=== PATIENT | male | born 1935 | race Caucasian/White ===

== ENCOUNTER 2016-11-23 15:26 | Observation (INO) | payer MEDICARE, BC ==
[2016-11-23] VITALS (385 sets, daily range): BP systolic 185–211; BP diastolic 78–82; PULSE 31–64; TEMP 97.6; O2SAT 92–100
[~2016-11-23] VITALS: Ht 175.3 cm; Wt 68.7 kg
[2016-11-23] MEDS ORDERED: ATIVAN 0.50.5 MG/TAB PO (17:35)
[2016-11-23 18:06] LABS: HEMATOCRIT 40.3 % (42.0-52.0); HEMOGLOBIN 13.3 g/dl (13.5-18.0); MEAN CELL VOLUME 94 fl (80.0-100.0); MEAN CORPUSCULAR HEMOGLOBIN 31 pg (27.0-31.0); MEAN CORPUSCULAR HGB CONC 33 g/dl (33.0-37.0); MEAN PLATELET VOLUME 13.7 fl (7.4-10.4); PLATELET COUNT 94 K/mm3 (130-400); RED BLOOD COUNT 4.28 M/mm3 (4.20-5.60); REDCELL DISTRIBUTION WIDTH-CV 12.5 % (11.5-14.5); WHITE BLOOD COUNT 6.8 K/mm3 (4.8-10.8)
[2016-11-23 18:18] LABS: INR 1.1 (0.8-3.0); PROTHROMBIN TIME 11.7 SECONDS (9.7-12.8)
[2016-11-23 18:18] LABS: ANION GAP 7 mmol/L (7-16); BLOOD UREA NITROGEN 15 mg/dL (9-20); CALCIUM 8.9 mg/dL (8.4-10.2); CARBON DIOXIDE 26 mmol/L (22-30); CHLORIDE 105 mmol/L (98-107); GLUCOSE 90 mg/dL (74-106); PHOSPHOROUS 3.7 mg/dL (2.5-4.5); SODIUM 138 mmol/L (137-145)
[2016-11-23 18:30] LABS: TROPONIN-I < 0.012 ng/mL (0.000-0.034)
[2016-11-23 18:31] LABS: B-TYPE NATRIURETIC PEPTIDE 382 pg/mL (0-450)
[2016-11-24] VITALS (521 sets, daily range): BP systolic 115–203; BP diastolic 65–98; PULSE 47–74; TEMP 97.8–98; O2SAT 78–100
[2016-11-24 05:52] LABS: BASO # 0.1 (0.0-0.2); BASO % 1.3 % (0.0-2.0); EOS # 0.2 (0.0-0.7); EOS % 3.6 % (0-4.0); GRAN # 3.5 (1.4-6.5); GRAN % 66.1 % (42.2-75.2); HEMATOCRIT 38.8 % (42.0-52.0); HEMOGLOBIN 12.9 g/dl (13.5-18.0); LYMPH # 1.1 (1.2-3.4); LYMPH % 20.9 % (20.0-51.0); MEAN CELL VOLUME 93 fl (80.0-100.0); MEAN CORPUSCULAR HEMOGLOBIN 31 pg (27.0-31.0); MEAN CORPUSCULAR HGB CONC 33 g/dl (33.0-37.0); MEAN PLATELET VOLUME 13.5 fl (7.4-10.4); MONO # 0.4 (0.1-0.6); MONO % 7.9 % (1.7-9.3); PLATELET COUNT 88 K/mm3 (130-400); RED BLOOD COUNT 4.19 M/mm3 (4.20-5.60); REDCELL DISTRIBUTION WIDTH-CV 12.4 % (11.5-14.5); WHITE BLOOD COUNT 5.3 K/mm3 (4.8-10.8)
[2016-11-24 06:07] LABS: CALCIUM 8.8 mg/dL (8.4-10.2); CREATININE, serum 0.84 mg/dL (0.66-1.25); POTASSIUM 3.6 mmol/L (3.4-5.0)
== END 2016-11-24 20:40 | disposition home or self-care (01) ==
LOC: IMCU 15:26 → ICU 16:47
PROVIDERS: Internal Medicine Interventional Cardiology
DX: I25.10 Atherosclerotic heart disease of native coronary artery without angina pectoris (principal); Z87.891 Personal history of nicotine dependence
CPT/HCPCS: C1760; C1894; G0378; G0379; J2250; J3010; J7512; Q9967